=== PATIENT | male | born 1995 | race Caucasian/White ===

== ENCOUNTER 2019-04-21 16:52 | Emergency (ER) | payer OTHER ==
[~2019-04-21] VITALS: Ht 175.3 cm; Wt 69.0 kg
[2019-04-21 16:53] VITALS: BP 143/75
[2019-04-21] MEDS ORDERED: ACET-683 PO (17:07)
[2019-04-21] MEDS ORDERED: IBUP1TAB7 PO (17:07)
[2019-04-21] MEDS ORDERED: PENI500T PO (17:23)
[2019-04-21] MEDS ORDERED: NORC1TAB7 PO (17:23)
== END 2019-04-21 17:34 | disposition home or self-care (01) ==
LOC: M ED 16:52
DX: K04.7 Periapical abscess without sinus (principal); K08.9 Disorder of teeth and supporting structures, unspecified; Z79.899 Other long term (current) drug therapy

== ENCOUNTER 2020-07-30 04:53 | Inpatient (IN) | payer OTHER ==
[~2020-07-30] VITALS: Ht 175.3 cm; Wt 66.3 kg
[~2020-07-30 04:53] MED LIST: ACET-683 PO; IBUP1TAB7 PO; NORC1TAB7 PO; PENI500T PO
[2020-07-30] MEDS ORDERED: LEXA1TAB PO (05:01)
[2020-07-30 05:25] LABS: HEMATOCRIT 47.2 % (42.0-52.0); HEMOGLOBIN 15.6 g/dl (13.5-17.5); MEAN CORPUSCULAR HEMOGLOBIN 29.1 pg (27.0-33.0); MEAN CORPUSCULAR HGB CONC 33.1 g/dl (32.0-36.5); MEAN CORPUSCULAR VOLUME 88.1 fl (80.0-96.0); PLATELET COUNT, AUTOMATED 226 10^3/uL (150-450); RED BLOOD COUNT 5.36 10^6/uL (4.30-6.10); WHITE BLOOD COUNT 8.8 10^3/uL (4.0-10.0)
[2020-07-30 05:38] LABS: AMPHETAMINES LEVEL URINE NEGATIVE (NEGATIVE); BARBITURATES URINE NEGATIVE (NEGATIVE); BENZODIAZEPINES URINE NEGATIVE (NEGATIVE); CANNABINOIDS URINE NEGATIVE (NEGATIVE); COCAINE METABOLITE URINE NEGATIVE (NEGATIVE); METHADONE URINE NEGATIVE (NEGATIVE); OPIATES URINE NEGATIVE (NEGATIVE); PHENCYCLIDINE URINE NEGATIVE (NEGATIVE)
[2020-07-30 05:53] LABS: ACETAMINOPHEN LEVEL < 2.0 UG/ML (10.0-30.0); ALBUMIN 4.8 GM/DL (3.2-5.2); ALT/SGPT 20 U/L (12-78); BILIRUBIN,DIRECT 0.2 MG/DL (0.0-0.2); BILIRUBIN,TOTAL 0.3 MG/DL (0.2-1.0); BLOOD UREA NITROGEN 9 MG/DL (7-18); CALCIUM LEVEL 9.6 MG/DL (8.5-10.1); CARBON DIOXIDE LEVEL 26 MEQ/L (21-32); CHLORIDE LEVEL 109 MEQ/L (98-107); CREATININE FOR GFR 0.98 MG/DL (0.70-1.30); ETHYL ALCOHOL (ETHANOL) 0.078 % (0.000-0.010); GLOMERULAR FILTRATION RATE > 60.0 (>60); GLUCOSE, FASTING 78 MG/DL (70-100); POTASSIUM SERUM 3.8 MEQ/L (3.5-5.1); SALICYLATE LEVEL < 1.7 MG/DL (5.0-30.0); SODIUM LEVEL 142 MEQ/L (136-145); TOTAL PROTEIN 7.9 GM/DL (6.4-8.2)
[2020-07-30] MEDS ORDERED: ESCITALOPRAM OXALATE 10 MG TAB (LEXAPRO) PO ONE (08:05)
--- NOTE | 2020-07-30 12:22 | ECGEPIP ---
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
[2020-07-30] MEDS ORDERED: EXCEDRIN MIGRAINE TABLET PO PRN (14:20)
[2020-07-30] MEDS ORDERED: hydrOXYzine 25 MG TAB PO ONE (22:30)
[2020-07-31] MEDS ORDERED: ESCITALOPRAM OXALATE 10 MG TAB (LEXAPRO) PO SCH (09:00)
[2020-07-31 13:54] LABS: RSV AMPLIFICATION NEGATIVE (NEGATIVE)
[2020-07-31] MEDS ORDERED: ACETAMINOPHEN TAB 650MG DOSE (2X325MG) PO PRN (18:00)
[2020-07-31] MEDS ORDERED: MAALOX 30 ML SUSP *UDC PO PRN (18:00)
[2020-07-31] MEDS ORDERED: MOM 30ML SUSPENSION UDC PO PRN (18:00)
[2020-07-31 19:51] VITALS: BP 111/74
[2020-07-31] MEDS: traZODone 50 MG TAB PO PRN (23:33)
[2020-08-01 06:50] VITALS: BP 122/64
[2020-08-01] MEDS: NICOTINE 21MG/24HR 1 EA TRANSDERMAL TD SCH (09:19)
[2020-08-01] MEDS: ESCITALOPRAM OXALATE 10 MG TAB (LEXAPRO) PO SCH (09:19)
--- NOTE | 2020-08-01 12:04 | HPEPDOC ---
[facility] Medical History & Physical Date of Admission Aug 01, 2020 Date of Service: Aug 01, 2020 History and Physical Chief complaint: Who presented to [facility] for suicidal ideation History of present illness: Patient is a 23-year-old male who presented to [facility] brought in by police for suicidal ideation. Patient was admitted to the inpatient mental health unit under the care of psychiatry. Hospitalist service called for medical screening evaluation. Currently patient denies any headache, nausea, vomiting, chest pain, shortness breath, palpitations, abdominal pain, constipation, diarrhea, or discomfort with urination. He denies any recent fevers or chills. Past Medical History: No reported past medical history Past Surgical History: Patient denies any prior surgeries Allergies: See below Medications: See below Family History: - Maternal grandmother with a history of Social History: - Denies the use of illicit drugs; rare alcohol use; quit smoking, however, uses a faint - Denies recent travel or sick contacts - Lives with and child - Occupation; works in the Review of Systems: 10 point review of systems complete, all negative otherwise stated in HPI Physical exam: - Vitals: BP [122/64], HR [84], RR [16], Sat [97%RA], Temp [98.0F] - General: Lying in bed, No acute distress, Speaking in full sentences, AAOx3 - HEENT: NC, AT, PERRLA - CVS: RRR, +S1S2 - Lungs: Fair air entry bilaterally, No appreciable wheezing / rales / rhonchi - Abdomen: Soft, Non-distended, Non-tender - Extremities: No lower extremity edema, No calf tenderness - Neuro: No focal motor or sensory deficit - Skin: No visible rashes Labs: See below Imaging: See below EKG: See below Assessment and Plan: Suicidal ideation - Patient has been admitted to the inpatient mental health unit under the care of psychiatry - Currently being managed by psychiatry No significant past medical history DVT prophylaxis - Will c/w early ambulation Thank you for this consultation; hospitalist service will now sign off; please re-consult as needed Vital Signs Vital Signs Date Time Temp Pulse Resp B/P (MAP) Pulse Ox O2 Delivery O2 Flow Rate FiO2 08/01/20 06:50 98.0 16 122/64 (83) 97 Room Air 07/31/20 19:51 84 Laboratory Data Labs 24H Laboratory Tests 2 07/31/20 12:51: Coronavirus (COVID-19)(PCR) NEGATIVE, Influenza Type A (RT-PCR) NEGATIVE, Influenza Type B (RT-PCR) NEGATIVE, Respiratory Syncytial Virus (PCR) NEGATIVE Home Medications Scheduled Escitalopram Oxalate (Lexapro) 10 Mg Tablet, 10 MG PO DAILY Allergies Coded Allergies: No Known Allergies (Unverified , 04/21/19) IRMA SOSA MD Aug 01, 2020 12:04
--- NOTE | 2020-08-01 13:20 | MHHPEPDOC ---
General Date Of Admission: Jul 31, 2020 Chief Complaint "I had a little bit of a meltdown due to depression. 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 "I had a little of a meltdown on Friday. My called the police and now I am here. I don't feel like I am doing as much as I should as a father. I am stressed out about the future. I worry about our financial stability and now all I want is to just go home to my family - my and child. He further reports that he is afraid that he is becoming more like his father. States "My father was useless as father and . I am trying not to be the same. I I act like my Dad." He reports that he is becoming angry too easily, he reports that his pet peeve is spend money on something and it doesn't work or when he works on something and it still doesn't work. He reports being very agitated and angry when people aren't clear about their plans. States, "Disorganization aggravates me. My leadership doesn't know that about me, if plans change at the last minute this gets on my nerves." He further reports his being rigid reports "Everything has to be in order in terms of time. I know that my drive takes 21 minutes and I leaves at 5:47 because it is a [address] and 3 minutes at the gate and I am always ten minutes early for the job except on Mondays and Fridays I have to give myself more time." States that he becomes anxious when he's late, gets very agitated when things don't go as planned. Has superficial lacerations to his left upper arm, cut himself on Friday with a knife. PER ED REPORT: Pt.'s spouse called 911 as pt was expressing SI and has superficial self inflicted LAC to arm, pt admits to SI on arrival, reports prior hx of depression and SI/self harm. Pt. reports he has been having suicidal thoughts, told his and she called police. Pt. has history of self- harm, current cuts to upper left arm that he inflicted yesterday. He reports that about 3 three months ago, he cut wrist in suicide attempt but did not tell anyone. Pt. reports that he has been feeling depressed and useless. He states that he resides with his and 6 week old baby. He states he has been having SI more often since of baby, stating he feels so useless and depressed that he wants to kill himself. He reports his is an awesome mom. Pt. reports he self referred to [facility] last month due to increased depression. He denies prior out-pt or in-pt treatment. He reports vague depression and anxiety for many years. He reports he has been in for 3 years, is light infanty. He reports one deployment to [employer]. He is from [place]. Psychiatric Review of Systems Depression (2 or more weeks): depressed mood, insomnia/hypersomnia (poor sleep due to ), feelings of worthlesness, appetite changes Ce (4 or more days of): irritable/elevated mood, expansive mood, talkativity, pressured, goal-directed activities, engages in risky behavior Psychosis: denies PTSD: denies Anxiety: situational anxiety, panic attacks Anxiety/ 6 months or more of: restlessness, keyed up Past Psychiatric History Previous Psychiatric Diagnosis: [place] as a kid, textures cause him to have sensory issues - jeans, rough clothing "my skin is crawling" Previous Psychiatric Admissions: This is the first Suicide Attempts: Friday tried to cut himself. Superficial lacerations on upper left arm with knife Psychiatric Follow-up: [facility] Psychiatric medications: Was Rx'd Lexapro and now taking it here, [facility] M[facility] started him on Lexapro last week. Past Medical History Medical Problems No contributing problems No surgeries Head Injury: Yes (Concussion fell out of an medic's truck) Seizures: No Hospitalizations: No Surgeries: No Family Medical/Psychiatric HX Psychiatric Disorders: Yes (Father Bipolar) Addiction: Yes (Father - alcohol, gambling, cannabis, amphetamines, possibly opiates) Suicide Attemps/Completions: No Addiction History nicotine (Vapes, use to be one pack a day smoker), alcohol (1-3 drinks, not an issue. ) Social History Childhood: Born in [place], [place] grew up in [facility], and describes his childhood "it had it's ups and downs" had both parents, parents when he was 17yo father was not around. 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 Social Support: , very good relationship Legal: None Marital: one year, with 1 baby girl Mental Status Examination General Appearance: well groomed, appears stated age, hospital scubs/clothing, lacerations Build: average Demeanor: average Eye Contact: average Activity: average Behavior: cooperative Speech: clear Mood: depressed, anxious Affect: constricted Thought Content (Delusions): none reported Thought Content (Other): none reported Thought Content (Aggressive): none reported Perception (Hallucinations): none reported Perception (Other): none reported Cognition(Intelligence Est.): average Oriented: Awake, Alert, Oriented times three Insight: good Judgment: Fair Psychosis: Denies Diagnoses Bipolar II Disorder, Depressed Nicotine Use Disorder Rule Out Obsessive Compulsive Disorder A-FIB/CHADSVASC A-FIB History Current/History of A-Fib/PAF?: No Current PO Anticoag Therapy: No Assessment 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 He reports feelings over being overwhelmed with being a father feeling pressures with financial stability also reporting that his father has a history of Bipolar Disorder. Patient has been having episodes of lability and being very agitated and angry with things like being late to work, and late minute changes in plans at work and things not working after him working on it for a long time. He reports that he has some obsessive-compulsive tendencies. When Bipolar symptoms was given to patient, he felt that he had many of the symptoms. Patient is alert and oriented, has mildly depressed mood and appears quite anxious. He is agreeable to starting Depakote which will start tonight. We will discharge later in the week, when he is stable and has no issues with medications. Initial Treatment Plan 1. Patient was admitted on a [9.39] status. 2. Complete history was obtained. 3. With patients permission, family will be contacted and database will be expanded. 4. Patients medication regimen will be reviewed and changed accordingly. Start Depakote for mood stabilization, consider changing Lexapro to Luvox for OCD symptoms 5. Patient will be provided with protected environment. 6. Patient will be treated with individual, group, and milieu therapies. 7. Patient will receive supportive psych-education. 8. Discharge planning will commence immediately. 9. Outpatient follow-up treatment will be strongly recommended. 10. The initial treatment plan will focus initially on: * Depression. * Risk for suicide. ESTIMATED LENGTH OF STAY: 3-5 DAYS. TIME SPENT COUNSELING AND COORDINATING INITIAL CARE: 60 minutes. Ordered/Pending Vital Signs Vital Signs Date Time Temp Pulse Resp B/P (MAP) Pulse Ox O2 Delivery O2 Flow Rate FiO2 08/01/20 06:50 98.0 16 122/64 (83) 97 Room Air 07/31/20 19:51 84 Laboratory Data 24H Labs Laboratory Tests 2 07/31/20 12:51: Coronavirus (COVID-19)(PCR) NEGATIVE, Influenza Type A (RT-PCR) NEGATIVE, Influenza Type B (RT-PCR) NEGATIVE, Respiratory Syncytial Virus (PCR) NEGATIVE Medications Scheduled Escitalopram Oxalate (Lexapro) 10 Mg Tablet, 10 MG PO DAILY, (Reported) Allergies Coded Allergies: No Known Allergies (Unverified , 04/21/19) ANIBAL CAIN NP Aug 01, 2020 12:17
[2020-08-01 17:42] VITALS: BP 111/65
[2020-08-01] MEDS ORDERED: DIVALPROEX 125 MG TAB PO ONE (21:00)
[2020-08-01] MEDS: traZODone 50 MG TAB PO PRN (22:50)
[2020-08-02 06:00] VITALS: BP 104/53
[2020-08-02 07:39] LABS: CHOLESTEROL RISK RATIO 2.75 (<5)
[2020-08-02] MEDS: ESCITALOPRAM OXALATE 10 MG TAB (LEXAPRO) PO SCH (08:25)
[2020-08-02] MEDS: NICOTINE 21MG/24HR 1 EA TRANSDERMAL TD SCH (08:26)
[2020-08-02] MEDS: busPIRone 10 MG TAB PO SCH ×2 (10:21→21:06)
--- NOTE | 2020-08-02 10:44 | MHIPNPDOC ---
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 "I had a little of a meltdown on Friday. My called the police and now I am here. I don't feel like I am doing as much as I should as a father. I am stressed out about the future. I worry about our financial stability and now all I want is to just go home to my family - my and child. He further reports that he is afraid that he is becoming more like his father. States "My father was useless as father and . I am trying not to be the same. I I act like my Dad." He reports that he is becoming angry too easily, he reports that his pet peeve is spend money on something and it doesn't work or when he works on some thing and it still doesn't work. He reports being very agitated and angry when people aren't clear about their plans. States, "Disorganization aggravates me. My leadership doesn't know that about me, if plans change at the last minute this gets on my nerves." He further reports his being rigid reports "Everything has to be in order in terms of time. I know that my drive takes 21 minutes and I leaves at 5:47 because it is a [address] and 3 minutes at the gate and I am always ten minutes early for the job except on Mondays and Fridays I have to give myself more time." States that he becomes anxious when he's late, gets very agitated when things don't go as planned. Has superficial lacerations to his left upper arm, cut himself on Friday with a knife. PER ED REPORT: Pt.'s spouse called 911 as pt was expressing SI and has superficial self inflicted LAC to arm, pt admits to SI on arrival, reports prior hx of depression and SI/self harm. Pt. reports he has been having suicidal thoughts, told his and she called police. Pt. has history of self- harm, current cuts to upper left arm that he inflicted yesterday. He reports that about 3 three months ago, he cut wrist in suicide attempt but did not tell anyone. Pt. reports that he has been feeling depressed and useless. He states that he resides with his and 6 week old baby. He states he has been having SI more often since of baby, stating he feels so useless and depressed that he wants to kill himself. He reports his is an awesome mom. Pt. reports he self referred to [facility] last month due to increased depression. He denies prior out-pt or in-pt treatment. He reports vague depression and anxiety for many years. He reports he has been in for 3 years, is light infanty. He reports one deployment to [employer]. He is from [place]. VITAL SIGNS: See below. CURRENT MEDICATIONS: See below. 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 Speech: Is fluid, conversant, normal rate, tone and volume Language skills are intact Thought processes including: linear and goal oriented Thought content: denies depression and anxiety. Denies suicidal/homicidal ideation, planning or intent. Abstract reasoning, and computation: fair Description of associations: denies, none observed Description of abnormal or psychotic thoughts: denies, none observed. Judgment: fair Insight: fair Orientation: alert and oriented to person, place, time and situation Recent and remote memory: intact Attention span and concentration: good Language: expansive Fund of knowledge: average Mood: Euthymic Mood Affect: reactive DIAGNOSES: Bipolar II Disorder, Depressed Nicotine Use Disorder Rule Out Obsessive Compulsive Disorder ASSESSMENT: patient is alert and oriented, remains free of self-harm thoughts, denies any adverse effects of Depakote MANAGEMENT PLAN: Continue all medications. Depakote will increased to 250 mg HS tonight, then will increased to 250 twice daily tomorrow. Possible Discharge on Friday TIME SPENT: 25 minutes. Vital Signs Vital Signs Date Time Temp Pulse Resp B/P (MAP) Pulse Ox O2 Delivery O2 Flow Rate FiO2 08/02/20 06:00 98.4 70 20 104/53 (70) 97 08/01/20 06:50 Room Air Laboratory Data 24H Labs Laboratory Tests 2 08/02/20 06:45: Triglycerides Level 165H, Total Cholesterol 154, LDL Cholesterol 65, Non-HDL Cholesterol (LDL + VLDL) 98, Total HDL Cholesterol 56, Cholesterol/HDL Ratio 2.7 50 Current Medications Current Medications Medications (Trade) Dose Ordered Sig/Lizzie Route PRN Reason Start Time Stop Time Status Last Admin Dose Admin Acetaminophen (Tylenol Tab) 650 mg Q6HP PRN PO HEADACHE or DISCOMFORT 07/31/20 18:00 Acetaminophen/ Aspirin/Caffeine (Excedrin Migraine) 1 ea Q8HP PRN PO HEADACHE 07/30/20 14:20 07/30/20 15:04 Al Hydrox/Mg Hydrox/Simethicone (Mylanta) 30 ml Q4HP PRN PO HEARTBURN/INDIGESTION 07/31/20 18:00 Buspirone HCl (Buspar) 10 mg BID PO 08/02/20 09:00 08/02/20 10:21 Divalproex Sodium (Depakote) 250 mg BID PO 08/03/20 09:00 Escitalopram Oxalate (Lexapro) 10 mg DAILY PO 07/31/20 09:00 07/31/20 22:40 DC 07/31/20 11:58 Escitalopram Oxalate (Lexapro) 10 mg DAILY PO 08/01/20 09:00 08/02/20 08:25 Home Med (Med Rec Complete!) ASDIRECTED XX 07/30/20 12:25 07/30/20 12:27 DC Magnesium Hydroxide (Milk Of Magnesia) 30 ml DAILYPRN PRN PO CONSTIPATION 07/31/20 18:00 Nicotine (Nicoderm Cq 21mg) 1 patch DAILY TD 08/01/20 09:00 08/02/20 08:26 Trazodone HCl (Desyrel) 50 mg QHSP PRN PO INSOMNIA 07/31/20 18:00 08/01/20 22:50 Allergies Coded Allergies: No Known Allergies (Unverified , 04/21/19) ANIBAL CAIN NP Aug 02, 2020 10:44
[2020-08-02 17:57] VITALS: BP 115/63
[2020-08-02] MEDS ORDERED: DIVALPROEX 250 MG TAB PO ONE (21:00)
[2020-08-02] MEDS: traZODone 50 MG TAB PO PRN (22:45)
[2020-08-03 06:27] VITALS: BP 114/57
[2020-08-03] MEDS: ESCITALOPRAM OXALATE 10 MG TAB (LEXAPRO) PO SCH (09:43)
[2020-08-03] MEDS: NICOTINE 21MG/24HR 1 EA TRANSDERMAL TD SCH (09:43)
[2020-08-03] MEDS: DIVALPROEX 250 MG TAB PO SCH ×2 (09:43→20:59)
[2020-08-03] MEDS: busPIRone 10 MG TAB PO SCH ×2 (09:43→20:58)
[2020-08-03] MEDS ORDERED: DEPA250T32 PO (14:02)
[2020-08-03] MEDS ORDERED: BUSP10TA PO (14:02)
--- NOTE | 2020-08-03 14:10 | MHIPNPDOC ---
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 "I had a little of a meltdown on Friday. My called the police and now I am here. I don't feel like I am doing as much as I should as a father. I am stressed out about the future. I worry about our financial stability and now all I want is to just go home to my family - my and child. He further reports that he is afraid that he is becoming more like his father. States "My father was useless as father and . I am trying not to be the same. I I act like my Dad. He is bipolar" He reports that he is becoming angry too easily, he reports that his pet peeve is spend money on something and it doesn't work or when he works on something and it still doesn't work. He reports being very agitated and angry when people aren't clear about their pl ans. States, "Disorganization aggravates me. My leadership doesn't know that about me, if plans change at the last minute this gets on my nerves." He further reports his being rigid reports "Everything has to be in order in terms of time. I know that my drive takes 21 minutes and I leaves at 5:47 because it is a [address] and 3 minutes at the gate and I am always ten minutes early for the job except on Mondays and Fridays I have to give myself more time." States that he becomes anxious when he's late, gets very agitated when things don't go as planned. Has superficial lacerations to his left upper arm, cut himself on Friday with a knife. PER ED REPORT: Pt.'s spouse called 911 as pt was expressing SI and has superficial self inflicted LAC to arm, pt admits to SI on arrival, reports prior hx of depression and SI/self harm. Pt. reports he has been having suicidal thoughts, told his and she called police. Pt. has history of self- harm, current cuts to upper left arm that he inflicted yesterday. He reports that about 3 three months ago, he cut wrist in suicide attempt but did not tell anyone. Pt. reports that he has been feeling depressed and useless. He states that he resides with his and 6 week old baby. He states he has been having SI more often since of baby, stating he feels so useless and depressed that he wants to kill himself. He reports his is an awesome mom. Pt. reports he self referred to [facility] last month due to increased depression. He denies prior out-pt or in-pt treatment. He reports vague depression and anxiety for many years. He reports he has been in for 3 years, is light infanty. He reports one deployment to [employer]. He is from [place]. VITAL SIGNS: See below. CURRENT MEDICATIONS: See below. 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 Speech: Is fluid, conversant, normal rate, tone and volume Language skills are intact Thought processes including: linear and goal oriented Thought content: denies depression and anxiety. Denies suicidal/homicidal ideation, planning or intent. Abstract reasoning, and computation: fair Description of associations: denies, none observed Description of abnormal or psychotic thoughts: denies, none observed. Judgment: fair Insight: fair Orientation: alert and oriented to person, place, time and situation Recent and remote memory: intact Attention span and concentration: good Language: expansive Fund of knowledge: average Mood: Euthymic Mood Affect: reactive DIAGNOSES: Bipolar II Disorder, Depressed Nicotine Use Disorder Rule Out Obsessive Compulsive Disorder ASSESSMENT: Patient states that he feels better because his mother is coming to visit him from [place]. He states that when he was struggling earlier that he had difficulty with getting past situational stressors. He had reported that he had labile moods for the past few months. He is very rigid in his work, has deliberate tasks that he needs to be apprised of otherwise this causes him increased irritability and agitation. He reports that he feels that Depakote is stabilizing his mood. MANAGEMENT PLAN: Continue all medications. Depakote increased to 250 twice daily. Discharge on Friday TIME SPENT: 25 minutes. Vital Signs Vital Signs Date Time Temp Pulse Resp B/P (MAP) Pulse Ox O2 Delivery O2 Flow Rate FiO2 08/03/20 06:27 98.2 82 18 114/57 (76) 97 Room Air Current Medications Current Medications Medications (Trade) Dose Ordered Sig/Lizzie Route PRN Reason Start Time Stop Time Status Last Admin Dose Admin Acetaminophen (Tylenol Tab) 650 mg Q6HP PRN PO HEADACHE or DISCOMFORT 07/31/20 18:00 Acetaminophen/ Aspirin/Caffeine (Excedrin Migraine) 1 ea Q8HP PRN PO HEADACHE 07/30/20 14:20 07/30/20 15:04 Al Hydrox/Mg Hydrox/Simethicone (Mylanta) 30 ml Q4HP PRN PO HEARTBURN/INDIGESTION 07/31/20 18:00 Buspirone HCl (Buspar) 10 mg BID PO 08/02/20 09:00 08/03/20 09:43 Divalproex Sodium (Depakote) 250 mg BID PO 08/03/20 09:00 08/03/20 09:43 Escitalopram Oxalate (Lexapro) 10 mg DAILY PO 07/31/20 09:00 07/31/20 22:40 DC 07/31/20 11:58 Escitalopram Oxalate (Lexapro) 10 mg DAILY PO 08/01/20 09:00 08/03/20 09:43 Home Med (Med Rec Complete!) ASDIRECTED XX 07/30/20 12:25 07/30/20 12:27 DC Magnesium Hydroxide (Milk Of Magnesia) 30 ml DAILYPRN PRN PO CONSTIPATION 07/31/20 18:00 Nicotine (Nicoderm Cq 21mg) 1 patch DAILY TD 08/01/20 09:00 08/03/20 09:43 Trazodone HCl (Desyrel) 50 mg QHSP PRN PO INSOMNIA 07/31/20 18:00 08/02/20 22:45 Allergies Coded Allergies: No Known Allergies (Unverified , 04/21/19) ANIBAL CAIN NP Aug 03, 2020 14:10
[2020-08-03 18:49] VITALS: BP 141/67
[2020-08-03] MEDS: traZODone 50 MG TAB PO PRN (22:57)
[2020-08-04 06:46] VITALS: BP 116/64
[2020-08-04] MEDS: NICOTINE 21MG/24HR 1 EA TRANSDERMAL TD SCH (08:28)
[2020-08-04] MEDS: DIVALPROEX 250 MG TAB PO SCH (08:28)
[2020-08-04] MEDS: ESCITALOPRAM OXALATE 10 MG TAB (LEXAPRO) PO SCH (08:28)
[2020-08-04] MEDS: busPIRone 10 MG TAB PO SCH (08:28)
--- NOTE | 2020-08-04 12:23 | MHDSPDOC ---
[facility] Discharge Summary Discharge Summary DATE OF ADMISSION: Jul 31, 2020 at 17:58 DATE OF DISCHARGE: Aug 04, 2020 at 10:33 DISCHARGE DIAGNOSES: Bipolar II Disorder, Depressed Nicotine Use Disorder Rule Out Obsessive Compulsive Disorder REASON FOR ADMISSION: : Patient is a 25 -year-old , [employer] , male, who stated that he was admitted because he had been feeling depressed. "I had a little of a meltdown on Friday. My called the police and now I am here. I don't feel like I am doing as much as I should as a father. I am stressed out about the future. I worry about our financial stability and now all I want is to just go home to my family - my and child. He further reports that he is afraid that he is becoming more like his father. States "My father was useless as father and . I am trying not to be the same. I I act like my Dad. He is bipolar" He reports that he is becoming angry too easily, he reports that his pet jeanninee is spend money on something and it doesn't work or when he works on something and it still doesn't work. He reports being very agitated and angry when people aren't clear about their plans. States, "Disorganization aggravates me. My leadership doesn't know that about me, if plans change at the last minute this gets on my nerves." He further reports his being rigid reports "Everything has to be in order in terms of time. I know that my drive takes 21 minutes and I leaves at 5:47 because it is a [address] and 3 minutes at the gate and I am always ten minutes early for the job except on Mondays and Fridays I have to give myself more time." States that he becomes anxious when he's late, gets very agitated when things don't go as planned. Has superficial lacerations to his left upper arm, cut himself on Friday with a knife. PER ED REPORT: Pt.'s spouse called 911 as pt was expressing SI and has superficial self inflicted LAC to arm, pt admits to SI on arrival, reports prior hx of depression and SI/self harm. Pt. reports he has been having suicidal thoughts, told his and she called police. Pt. has history of self- harm, current cuts to upper left arm that he inflicted yesterday. He reports that about 3 three months ago, he cut wrist in suicide attempt but did not tell anyone. Pt. reports that he has been feeling depressed and useless. He states that he resides with his and 6 week old baby. He states he has been having SI more often since of baby, stating he feels so useless and depressed that he wants to kill himself. He reports his is an awesome mom. Pt. reports he self-referred to [facility] last month due to increased depression. He denies prior out-pt or in-pt treatment. He reports vague depression and anxiety for many years. 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 CONSULTANTS INVOLVED: See Medical H + P by Hospitalist TREATMENT AND PROGRESS ON THE UNIT: Patient was admitted to the [facility] on a legal status he was afforded the following treatment modalities: 1) Individual Therapy 2) Group Therapy 3) Medication Management 4) Milieu Therapy 5) Safe Environment HOSPITAL COURSE: Patient was admitted to [facility] on a . Based on his descriptions of things that have been going on including a parent with Bipolar Disorder, he was started on Depakote to stabilize his labile moods. He reports that he needed a medication that would help him with his increased agitation and behaviors of aggravation. He was visible in the milieu, played chess with other peers. He was social with staff and peers, observed to be bright affected in mood and affect during his hospitalization. He reported no adverse affects of Depakote. He is requesting discharged today. Reports feeling happy that his mother is coming to visit him and reports excitement in seeing his and baby daughter. At this time, the treatment team feel confident that patient no longer poses a danger to himself/others. He met criteria for discharge today. DISCHARGE ASSESSMENT: In today's interview, patient is alert and oriented, pts dress is appropriate. Hygiene and grooming is well-kempt. Smiles on approach and is pleasant and engaged in the interview. Denies depression and anxiety. Denies suicidal and homicidal ideation, planning or intent. Denies and is not observed with remy, psychotic symptoms of delusions, bizarre thinking, obsessions, paranoia, ruminations illogical thoughts, flight of ideas or having poor insight and judgement. Patient has normal mentation, declines further hospitalization on a voluntary status and meets criteria for discharge today. Patient encouraged to return to hospital if his symptoms worsen or change and encouraged to call unit if he/she/they needs to speak to provider for questions regarding medications or care. MENTAL STATUS EXAMINATION ON DISCHARGE: Patient is a -year old male, who is . Speech: Is fluid, conversant, normal rate, tone and volume Language skills are intact Thought processes including: linear and goal oriented Thought content: denies depression and anxiety. Denies suicidal/homicidal ideation, planning or intent. Abstract reasoning, and computation: fair Description of associations: denies, none observed Description of abnormal or psychotic thoughts: denies, none observed. Judgment: fair Insight: fair Orientation: alert and oriented to person, place, time and situation Recent and remote memory: intact Attention span and concentration: good Language: expansive Fund of knowledge: average Mood: Euthymic Mood Affect: reactive MEDICATIONS ON DISCHARGE: See Medication Reconciliation PLAN/FOLLOWUP ARRANGEMENTS: [facility] The amount of time spent in the coordination of care for this patient was appr oximately 25 minutes. ETOH/Disorder Med Rx ETOH/DRUG DISORDER RX: N/A Vital Signs/I&Os Vital Signs Date Time Temp Pulse Resp B/P (MAP) Pulse Ox O2 Delivery O2 Flow Rate FiO2 08/04/20 06:46 97.8 77 16 116/64 (81) 98 Room Air Medications Scheduled Buspirone HCl (Buspirone HCl) 10 Mg Tablet, 10 MG PO BID for Anxiety, #14 Divalproex Sodium (Depakote) 250 Mg Tablet.dr, 250 MG PO BID for Mood, #14 Escitalopram Oxalate (Lexapro) 10 Mg Tablet, 10 MG PO DAILY, (Reported) Allergies Coded Allergies: No Known Allergies (Unverified , 04/21/19) ANIBAL CAIN NP Aug 04, 2020 12:23
== END 2020-08-04 10:33 | disposition home or self-care (01) | DRG 885 ==
LOC: M ED 04:53 → M ED INP 07-31 17:58 → M PSY 07-31 19:48
PROVIDERS: ADMIT Psychiatry & Neurology Child & Adolescent Psychiatry; ATTEND Psychiatry & Neurology Psychiatry
DX: F31.81 Bipolar II disorder (principal); R45.851 Suicidal ideations; F17.200 Nicotine dependence, unspecified, uncomplicated; F60.5 Obsessive-compulsive personality disorder; Z79.899 Other long term (current) drug therapy